=== PATIENT | female | born 1970 | race African-American/Black ===

== ENCOUNTER → 2019-01-30 | Outpatient (CLI) | payer MEDICARE, OTHER ==
--- NOTE | 2019-01-30 14:35 | CT ---
EXAMINATION TYPE: CT abdomen pelvis wo con DATE OF EXAM: 01/30/2019 HISTORY: abdominal pain CT DLP: 659 mGycm. Automated Exposure Control for Dose Reduction was Utilized. TECHNIQUE: CT scan of the abdomen and pelvis is performed with oral but without contrast. COMPARISON: NONE FINDINGS: Within the limitations of a non-contrast study, the following observations are made. Motio n artifact degradation is seen making evaluation slightly suboptimal. LUNG BASES: Heterogeneously dense fibroglandular tissue in both breasts was suspected nearly 1 cm dys trophic calcification medially in the left breast axial image 2. Some respiratory motion artifact deg radation. LIVER/GB: No significant abnormality is appreciated. PANCREAS: No significant abnormality is seen. SPLEEN: No significant abnormality is seen. ADRENALS: No significant abnormality is seen. KIDNEYS: There is 5.3 cm low dense lesion lower pole right kidney favoring simple thin-walled cyst ax ial image 35. BOWEL: The oral contrast reaches the level of the proximal transverse colon. Patient is very little i ntra-abdominal fat making evaluation slightly suboptimal. No suspicious small or large bowel dilatati on is seen. GENITAL ORGANS: Lobulated uterus suggests multiple subserosal or exophytic fibroids. Scattered pelvic phleboliths are noted. LYMPH NODES: No greater than 1cm abdominal or pelvic lymph nodes are appreciated. OSSEOUS STRUCTURES: Slight S-shaped scoliotic curvature. OTHER: No significant additional abnormality is seen. IMPRESSION: No bowel obstruction is present. No acute findings clearly seen. Probable uterine fibroid disease noted.
== END | disposition home or self-care (01) ==
LOC: RADCTMAIN 10:33 → EEVIPCON 12:40
PROVIDERS: ATTEND Family Medicine
DX: R10.9 Unspecified abdominal pain (principal)
CPT/HCPCS: 74176

== ENCOUNTER → 2020-04-01 | Outpatient (CLI) | payer MEDICARE, OTHER ==
--- NOTE | 2020-04-05 11:29 | MM ---
Reason for exam: screening (asymptomatic). Last mammogram was performed 9 years and 2 months ago. History: Took hormonal contraceptives for 1 year beginning at age 36. Physical Findings: A clinical breast exam by your physician is recommended on an annual basis and results should be correlated with mammographic findings. MG 3D Screening Mammo W/Cad Bilateral CC and MLO view(s) were taken. Prior study comparison: January 24, 2011, CAD bilateral diagnostic mammogram. January 18, 2010, bilateral digital screening mammogram. The breast tissue is extremely dense which could obscure a lesion on mammography. Old fat necrosis medial left breast. Bilateral circumscribed masses greater in the left breast. 1.3cm posterior 8-9 o'clock right breast. At least 4 on the left measuring up to 2.0cm. Further ultrasound evaluation recommended given extremely dense breast. ASSESSMENT: Incomplete: need additional imaging evaluation, BI-RAD 0 RECOMMENDATION: Ultrasound of both breasts. [facility] will attempt to contact patient to return for ultrasound.
== END | disposition home or self-care (01) ==
LOC: RADMAMWWP 13:15
PROVIDERS: ATTEND Family Medicine
DX: Z12.31 Encounter for screening mammogram for malignant neoplasm of breast (principal)
CPT/HCPCS: 77063; 77067

== ENCOUNTER → 2020-04-08 | Outpatient (CLI) | payer MEDICARE, OTHER ==
--- NOTE | 2020-04-09 13:26 | USB ---
Reason for exam: additional evaluation requested from abnormal screening. History: Took hormonal contraceptives for 1 year beginning at age 36. Physical Findings: Nurse Summary: bilateral movable palpables, all movable, 0.5-2cm tenderness noted on exam (nurse ts). US Breast Workup AMY Right complete breast ultrasound includes all four quadrants, the retroareolar region and axilla. Finding demonstrates a 0.9 x 0.9 x 0.7cm oval, cystic lesion at 12 o'clock, simple cyst, a 1.0 x 1.2 x 0.6cm oval, cluster, complex, cystic lesion at 2 o'clock, adjacent cysts with debris, ductal ectasia at 4 o'clock, a 0.5 x 0.4 x 0.4cm oval, lesion too small to characterize at 10 o'clock and a 0.6 x 0.6 x 0.5cm oval lesion too small to characterize at 1 o'clock, favor irregular debris filled cyst. Left complete breast ultrasound includes all four quadrants, the retroareolar region and axilla. Finding demonstrates a 0.9 x 0.9 x 0.8cm oval, complex, cystic lesion at 2 o'clock, favor debris filled cyst, a 2.7 x 2.0 x 0.9cm oval, irregular, mixed lesion at 2 o'clock, aspiration/biopsy recommended, a 1.0 x 1.1 x 0.9cm oval, hypoechoic, shadowing lesion at 3 o'clock, biopsy recommended, a 0.6 x 0.6 x 0.6cm round, complex, cystic lesion at 3 o'clock, through transmission, likely debris, a 2.3 x 1.1 x 0.5cm oval, lobular, hypoechoic, vascular lesion at 4 o'clock, biopsy recommended, a 1.3 x 2.0 x 1.0cm oval, mixed, hypoechoic lesion at 7 o'clock, biopsy recommended, a 0.7 x 0.7 x 0.4cm oval, lobular, hypoechoic lesion at 8 o'clock, a 0.8 x 0.9 x 0.8cm complex, cystic lesion at 11 o'clock, questionable debris filled cyst and a 1.7 x 1.1 x 0.3cm axilla node. These results were verbally communicated with the patient and result sheet given to the patient on 04/08/20. ASSESSMENT: Suspicious, BI-RAD 4 RECOMMENDATION: Ultrasound core biopsy of the left breast. (4 lesions) Called Dr. Hernandez's office with mammographic findings and has scheduled an appointment for the patient for 05/21/19 at 9:[address] Cantu. Biopsies scheduled for 04/26/20 at 1:00 and 05/03/20 at 1:00. PRELIMINARY REPORT CALLED AND FAXED TO DR. CANTU ON 04/09/20.
== END | disposition home or self-care (01) ==
LOC: RADUSWWP 13:32
PROVIDERS: ATTEND Family Medicine
DX: R92.8 Other abnormal and inconclusive findings on diagnostic imaging of breast (principal)

== ENCOUNTER → 2020-04-26 | Day surgery (SDC) | payer MEDICARE, OTHER ==
[2020-04-26 13:14] VITALS: RESP 16
[2020-04-26 14:23] VITALS: BP 129/88; PULSE 109; TEMP 99.5
--- NOTE | 2020-04-26 14:24 | USB ---
EXAMINATION TYPE: US biopsy breast VAD LT, US biopsy breast add'l VAD LT, MG postbiopsy diagnostic mammo LT wo CAD DATE OF EXAM: 04/26/2020 CLINICAL HISTORY: 49-year-old female R92.8 ABN MAMMO. TECHNIQUE: Ultrasound guided core biopsy of 2 out of 4 sites in the left breast. COMPARISON: 04/08/2020 04/01/2020 FINDINGS: The procedure of ultrasound guided core biopsy was explained to the patient. Benefits, alternatives, and risks were discussed. An informed consent was then obtained. There are 2 caretakers which accompany the patient. The patient 04/08/2020 ultrasound is reviewed. Lesions which are referred for biopsy are located at the 2:00, 3:00 zone A, 4:00, and 7:00 positions. The largest areas (2:00 and 7:00) are chosen for biopsy at this time. The patient will return next week for the remaining 2 sites. The patient was placed in right posterior oblique positioning for imaging and for the procedure. The overlying skin was prepped and draped in usual sterile fashion. Lidocaine was used as anesthetic into the skin and subcutaneous tissue up to area of concern in the 2:00 and 7:00 position at each site sports apparel internship. SITE 1, 2:00: Under ultrasound guidance, a 13-gauge vacuum-assisted Mammotome Elite biopsy gun device was used to obtain 4 core samples. Following this, a coil clip was deployed at the site of biopsy. SITE 2, 7:00: Under ultrasound guidance, a 13-gauge vacuum-assisted Mammotome Elite biopsy gun device was used to obtain 3 core samples. Following this, a ribbon clip was left in lesion. The patient tolerated the procedure well without any immediate complication. The patient was kept in the radiology department for short stay after the procedure and then discharged home in stable condition. Post procedure mammogram shows clips at 2 of the mammographic masses. The 2:00 coil clip is seen on the repeat ML view only. IMPRESSION: 1. Successful, uncomplicated ultrasound guided core biopsy of area of concern in the left 2 and 7:00 positions (coil and ribbon clips, respectively). Full pathology results to follow. 2. Patient to return next week for biopsies at the left breast 3:00 zone A and 4:00 positions. Pathology Results: Benign A. LEFT BREAST, 2:00, ULTRASOUND GUIDED CORE BIOPSY: Fibrocystic changes including fibrosis, small cysts and rare calcifications. B. LEFT BREAST, 7:00, ULTRASOUND GUIDED CORE BIOPSY: Fibrocystic changes including fibrosis and small cysts. Recommendation Follow up mammogram of the left breast in 6 months. FERNANDO
== END ==
LOC: RADUSWWP 12:00
PROVIDERS: ATTEND Surgery
DX: N60.12 Diffuse cystic mastopathy of left breast (principal)
CPT/HCPCS: 88305; 77065; 19083; 19084; A4648; J2001

== ENCOUNTER → 2020-05-03 | Day surgery (SDC) | payer MEDICARE, OTHER ==
--- NOTE | 2020-05-03 15:33 | USB ---
EXAMINATION TYPE: US biopsy breast VAD LT, US biopsy breast add'l VAD LT, MG postbiopsy diagnostic mammo LT wo CAD DATE OF EXAM: 05/03/2020 CLINICAL HISTORY: 49-year-old female R92.8 Abnormal Mammogram 2 Site. TECHNIQUE: Ultrasound guided core biopsy of the 3 and 4:00 position of the left breast. Completion of biopsies from 04/26/2020. COMPARISON: 04/08/2020 and 04/01/2020 FINDINGS: The procedure of ultrasound guided core biopsy was explained to the patient. Benefits, alternatives, and risks were discussed. An informed consent was then obtained. The patient was placed in supine positioning for imaging and for the procedure. The overlying skin was prepped and draped in usual sterile fashion. Lidocaine was used as anesthetic into the skin and subcutaneous tissue up to each area of concern in the left breast in turn. (The first 2 sites were sampled on 04/26/2020). SITE 3, 3:00 zone A (possibly cystic): Under ultrasound guidance, a 13-gauge vacuum-assisted Mammotome Elite biopsy gun device was used to obtain a total of 9 samples; the biopsy device failed to obtain adequate cores at the first 5 attempts. The device was switched out and 4 successful cores were subsequently obtained. Following this, a wing clip was deployed at the site of biopsy. SITE 4, 4:00 (hypoechoic lobulated): Under ultrasound guidance, a 13-gauge vacuum-assisted Mammotome Elite biopsy gun device was used to obtain 4 core samples. Following this, a Hydromark clip was left in lesion. The patient tolerated the procedure well without any immediate complication. The patient was kept in the radiology department for short stay after the procedure and then discharged home in stable condition. Postbiopsy mammogram shows clips in appropriate position. IMPRESSION: Successful, uncomplicated ultrasound guided core biopsy of sites 3 and 4 in the left breast (continuation from biopsy started on 04/26/2020). Full pathology results to follow. Pathology Results: Benign A. BREAST, LEFT, SITE A AT 3:00, CORE NEEDLE BIOPSY: Benign breast with focal fibrocystic change, fibrosis, mild periductal chronic inflammation and focal microcalcification. Negative for in situ or invasive carcinoma. Focal mild usual ductal hyperplasia present. B. BREAST, LEFT, SITE B AT 4:00: Fibroadenomatoid change/hyperplasia with mild periductal chronic inflammation, fibrosis, and focal sclerosing adenosis (See comment). Negative for in situ or invasive carcinoma. Rare microcalcification identified. Recommendation Follow up ultrasound of the left breast in 6 months. AYSED
[2020-05-03 16:16] VITALS: BP 128/77; PULSE 108; RESP 17; TEMP 98
== END ==
LOC: RADUSWWP 12:02
PROVIDERS: ATTEND Surgery
DX: N60.12 Diffuse cystic mastopathy of left breast (principal); R92.0 Mammographic microcalcification found on diagnostic imaging of breast; R92.8 Other abnormal and inconclusive findings on diagnostic imaging of breast; N62 Hypertrophy of breast
CPT/HCPCS: 88305; 88342; 77065; 19083; 19084; A4648; J2001

== ENCOUNTER → 2020-05-21 | Outpatient (CLI) | payer MEDICARE, OTHER ==
[2020-05-21 09:09] VITALS: BP 112/74; PULSE 111; RESP 16; TEMP 98.3
--- NOTE | 2020-05-21 09:54 | P.GSHP ---
History of Present Illness H&P Date: 05/21/20 Chief Complaint: Core Biopsy of 4 areas in the left breast Lianne is a 49-year-old mentally challenged -[place] female who underwent a bilateral screening mammogram on 122557 and ultrasound on [id number]. She was seen in consultation for Dr. Vaughn regarding the abnormalities noted on the ultrasound. 4 areas were recommended for biopsy on the [place] [address] [place] [address]. The area in the left breast at 2:00 revealed fibrocystic changes Area left breast at 7:00 fibrocystic changes Left breast at 3:00 fibrocystic changes Area left breast at 4:00 fibroadenomatoid change with mild. Ductal chronic inflammation and focal sclerosing adenosis All areas were felt to be concordant and negative for malignancy. Approximately 8-9 years ago she did have a biopsy done in one of the breast which was benign. The patient is not complaining of any lumps masses or nodules in her breast, she is mentally challenged and does not do self- examinations. She has had some intermittent left breast discomfort for the past several months. No nipple discharge. caffeine: tea in evening nicotine: none michael-bromine: occasional Family History: unknown Hormonal History: menarche: ? start G0 menopause: periods regular BCP: none hormones: none Past Surgical History: none Medical History: diverticulitis mentally challenged pre-diabetic Schizoaffective disorder and mild intellectual disability Social History: nicotine: none alcohol: none drugs: none - Constitutional Constitutional: Denies chills, Denies fever - EENT Eyes: denies blurred vision, denies pain Ears: deny: decreased hearing, tinnitus Ears, nose, mouth and throat: Denies headache, Denies sore throat - Breasts Breasts: bilateral: as per HPI - Cardiovascular Cardiovascular: Denies chest pain, Denies shortness of breath - Respiratory Respiratory: Denies cough, Denies 7 - Gastrointestinal Gastrointestinal: Denies abdominal pain, Denies diarrhea, Denies nausea, Denies vomiting - Genitourinary (Female) Comment: UTI in past Genitourinary: Denies dysuria, Denies hematuria - Menstruation Menstruation: Reports period normal - Musculoskeletal Musculoskeletal: Denies myalgias - Integumentary Integumentary: Denies pruritus, Denies rash - Neurological Neurological: Denies numbness, Denies weakness - Psychiatric Comment: Schizoaffective disorder Mild intellectual disability - Endocrine Endocrine: Denies fatigue, Denies weight change - Hematologic/Lymphatic Comment: none - Allergic/Immunologic Allergic/Immunologic: Reports as per HPI Past Medical History Additional Past Medical History / Comment(s): DIVERTICULITIS; MODERATE INTELLECTUAL ABILITY; PRE-DIABETIC; History of Any Multi-Drug Resistant Organisms: None Reported Past Surgical History: Breast Surgery Additional Past Surgical History / Comment(s): benign LEFT BREAST BIOPSY x2 on 04/26/20 & x2 on 05/03/20; Past Anesthesia/Blood Transfusion Reactions: No Reported Reaction Past Psychological History: Schizoaffective Disorder Smoking Status: Never smoker Past Alcohol Use History: None Reported Past Drug Use History: None Reported Medications and Allergies Home Medications Medication Instructions Recorded Confirmed Type Ciclopirox Olamine Cream [Ciclodan] 1 applic TOPICAL DAILY 04/12/20 05/21/20 History Divalproex ER [Depakote ER] 500 mg PO HS 04/12/20 05/21/20 History Ferrous Gluconate 324 mg PO BID 04/12/20 05/21/20 History Glycopyrrolate 1 mg PO BID 04/12/20 05/21/20 History LORazepam [Ativan] 0.5 mg PO BID PRN 04/12/20 05/21/20 History LORazepam [Ativan] 1 mg PO HS 04/12/20 05/21/20 History Omeprazole [PriLOSEC] 20 mg PO BID 04/12/20 05/21/20 History cloNIDine HCL [Catapres] 0.2 mg PO BID 04/12/20 05/21/20 History cloZAPine [Clozaril] 100 mg PO HS 04/12/20 05/21/20 History haloperidoL [Haldol] 5 mg PO HS 04/12/20 05/21/20 History Allergies Allergy/AdvReac Type Severity Reaction Status Date / Time No Known Allergies Allergy Verified 05/03/20 12:26 Surgical - Exam Vital Signs Temp Pulse Resp BP Pulse Ox 98.3 F 111 H 16 112/74 99 05/21/20 09:00 05/21/20 09:00 05/21/20 09:00 05/21/20 09:00 05/21/20 09:00 BMI 22.9 - General mentally challenged - Eyes normal ocular movement - ENT normal nares - Neck no masses, trachea midline - Respiratory normal expansion - Cardiovascular Rhythm: regular Heart Sounds: normal: S1, S2 - Abdomen Abdomen: soft - Integumentary normal turgor - Neurologic mentally challenged - Musculoskeletal normal gait - Psychiatric She is seen with her caregiver and clinician from [facility]/patient has mild intellectual actual disability breast exam: BRA: sports bra 2X inspection: Bilateral grade 3 ptosis Palpation: Right breast: Multi-positional exam fibrocystic changes, no dominant masses or nodules of concern Right axilla: No adenopathy of concern Left breast: Multiple positional exam fibrocystic changes, Steri-Strips in place from prior biopsy no evidence of infection no ecchymosis of concern Left axilla: No adenopathy of concern Results Mammogram and ultrasound results reviewed as well as pathology report reviewed Assessment and Plan Assessment: Impression: 1. Abnormal left breast mammogram and ultrasound status post ultrasound-guided core biopsy of 4 sites all benign 2. Fibrocystic breast changes 3. Mild intellectual disability/schizoaffective disorder 4. Prediabetic 5. Nothing at this time which would warrant interventional biopsy of the breast Plan: 1. Repeat left breast mammogram and ultrasound in 6 months 2. Follow up sooner if any questions of concern 3. Management of medical conditions as per Dr. Hernandez CC: Dr. Hernandez encounter 45 minutes, time spent in reviewing medical records, physical examination, and counseling. The case was discussed with her caregiver and [facility]. Again if she has any questions or concerns we have be to see her sooner.
== END | disposition home or self-care (01) ==
LOC: WWCWWP 08:39
PROVIDERS: ATTEND Surgery
DX: Z53.9 Procedure and treatment not carried out, unspecified reason (principal)

== ENCOUNTER → 2020-11-02 | Outpatient (CLI) | payer MEDICARE, OTHER ==
--- NOTE | 2020-11-02 10:27 | USB ---
EXAMINATION TYPE: US breast limited LT DATE OF EXAM: 11/02/2020 COMPARISON: Mammogram same date, 05/03/2020, 04/26/2020, 04/08/2020, 04/01/2020 CLINICAL HISTORY: R92.8 Abnormal Mammogram. Findings: In the left breast at 2:00, there is a 1.6 x 0.9 x 1.5 cm heterogeneous lesion which has been previou sly biopsied. In the left breast at 4:00, there is a 0.8 x 0.4 x 1.3 cm heterogeneous lesion which is previously bi opsied. In the left breast at 7:00, there is a 1.3 x 0.9 x 1.8 cm lobulated hypoechoic lesion which contains biopsy clip. Other hypoechoic and anechoic ovoid lesions are also seen which are presumed benign due to multiplici ty and bilaterality. IMPRESSION: No sonographic evidence for malignancy. BI-RADS 2, benign. Patient is due for her bilateral mammogram in March 2021 which can be performed as a screening brenton mogram.
--- NOTE | 2020-11-02 11:42 | MM ---
Reason for exam: follow-up at short interval from prior study. Last mammogram was performed 6 months ago. History: Benign US biopsy breast VAD LT of the left breast, May 03, 2020. Benign US biopsy breast add'l VAD LT of the left breast, May 03, 2020. Benign US biopsy breast VAD LT of the left breast, April 26, 2020. Benign US biopsy breast add'l VAD LT of the left breast, April 26, 2020. Took hormonal contraceptives for 1 year beginning at age 36. Physical Findings: Nurse did not find any significant physical abnormalities on exam. MG Diagnostic Mammo LT w CAD CC and MLO view(s) were taken of the left breast. Prior study comparison: May 03, 2020, left breast MG diagnostic mammo LT wo CAD. April 26, 2020, left breast MG diagnostic mammo LT wo CAD. April 01, 2020, bilateral MG 3d screening mammo w/cad. January 24, 2011, CAD bilateral diagnostic mammogram. The breast tissue is heterogeneously dense. This may lower the sensitivity of mammography. Asymmetry unchanged now some with biopsy clips. These results were verbally communicated with the patient and result sheet given to the patient on 11/02/20. ASSESSMENT: Incomplete: need additional imaging evaluation, BI-RAD 0 RECOMMENDATION: Ultrasound of the left breast. (as per prior recommendation)
== END | disposition home or self-care (01) ==
LOC: RADMAMWWP 09:24
PROVIDERS: ATTEND Surgery
DX: N64.89 Other specified disorders of breast (principal); Z79.3 Long term (current) use of hormonal contraceptives
CPT/HCPCS: 77065

== ENCOUNTER → 2020-11-11 | Outpatient (CLI) | payer MEDICARE, OTHER ==
[2020-11-11 14:11] VITALS: BP 136/90; PULSE 106; RESP 18; TEMP 97.8
--- NOTE | 2020-11-11 14:25 | P.PN ---
Subjective Progress Note Date: 11/11/20 Principal diagnosis: fibrocystic breast changes Lianne is a 49-year-old mentally challenged -[place] female who underwent a bilateral screening mammogram on 457539 and ultrasound on 981070. She was seen in consultation for Dr. Vaughn regarding the abnormalities noted on the ultrasound. 4 areas were recommended for biopsy on the ultrasound [place] [address] [place] [address]. The area in the left breast at 2:00 revealed fibrocystic changes Area left breast at 7:00 fibrocystic changes Left breast at 3:00 fibrocystic changes Area left breast at 4:00 fibroadenomatoid change with mild. Ductal chronic inflammation and focal sclerosing adenosis All areas were felt to be concordant and negative for malignancy. Approximately 8-9 years ago she did have a biopsy done in one of the breast which was benign. She underwent a repeat mammogram and ultrasound of the left breast on 11-02-20. The findings were felt to be benign BIRADS 2, and repeat mammogram in March was recommended. The patient is not complaining of any lumps masses or nodules in her breast, she is mentally challenged and does not do self-examinations. No nipple discharge. caffeine: tea in evening nicotine: none michael-bromine: occasional Family History: unknown Hormonal History: menarche: ? start G0 menopause: periods regular BCP: none hormones: none Past Surgical History: none Medical History: diverticulitis mentally challenged pre-diabetic Schizoaffective disorder and mild intellectual disability Social History: nicotine: none alcohol: none drugs: none - Constitutional Constitutional: Denies chills, Denies fever - EENT Eyes: denies blurred vision, denies pain Ears: deny: decreased hearing, tinnitus Ears, nose, mouth and throat: Denies headache, Denies sore throat - Breasts Breasts: bilateral: as per HPI - Cardiovascular Cardiovascular: Denies chest pain, Denies shortness of breath - Respiratory Respiratory: Denies cough - Gastrointestinal Gastrointestinal: Denies abdominal pain, Denies diarrhea, Denies nausea, Denies vomiting - Genitourinary (Female) Comment: UTI in past Genitourinary: Denies dysuria, Denies hematuria - Menstruation Menstruation: Reports period normal - Musculoskeletal Musculoskeletal: Denies myalgias - Integumentary Integumentary: Denies pruritus, Denies rash - Neurological Neurological: Denies numbness, Denies weakness - Psychiatric Comment: Schizoaffective disorder Mild intellectual disability - Endocrine Endocrine: Denies fatigue, Denies weight change - Hematologic/Lymphatic Comment: none - Allergic/Immunologic Allergic/Immunologic: Reports as per HPI Objective - Vital Signs Vital signs: Vital Signs Temp 97.8 F 11/11/20 14:08 Pulse 106 H 11/11/20 14:08 Resp 18 11/11/20 14:08 BP 136/90 11/11/20 14:08 Pulse Ox 100 11/11/20 14:08 Intake & Output 11/10/20 11/11/20 11/11/20 18:59 06:59 18:59 Weight 68.039 kg - Exam BMI 24.4 - Constitutional General appearance: Present: average body habitus - EENT Eyes: Present: EOMI - Neck Neck: Present: normal ROM - Respiratory Respiratory: bilateral: CTA - Cardiovascular Heart sounds: normal: S1, S2 - Psychiatric Psychiatric Comment(s): mentally challenged - Additional findings Additional findings: Breast Exam: BRA: large sports bra Inspection: grade 2/3 ptosis bilateral Outpatient: Right breast: Multi-positional exam no dominant masses or nodules of concern Right axilla: No adenopathy of concern Left breast: Multiple positional exam fibrocystic changes no dominant masses or nodules of concern, well-healed scar from prior surgery Left axilla: No adenopathy of concern Assessment and Plan Assessment: Impression: 1. Patient status post repeat mammogram [place] [address] felt to be benign BIRADS 2 2. Patient underwent core biopsy of left breast at 3:00 and 4:00 as well as at 2:00 and 7:00 and all were benign[place] [address] and [address]. 3. Fibrocystic breast changes 4. Prediabetic 5. Mild intellectual disability/schizoaffective disorder Plan: 1. Repeat bilateral mammogram and ultrasound of the left breast in March 2. Physician exam at that time CC: Dr. Hernandez The patient was seen in conjunction with her caregiver from [facility].
== END ==
LOC: WWCWWP 13:57
PROVIDERS: ATTEND Surgery
DX: N60.12 Diffuse cystic mastopathy of left breast (principal); R73.03 Prediabetes; F25.9 Schizoaffective disorder, unspecified; F70 Mild intellectual disabilities

== ENCOUNTER → 2021-04-12 | Outpatient (CLI) | payer MEDICARE, OTHER ==
--- NOTE | 2021-04-12 10:37 | MM ---
Reason for exam: additional evaluation requested from prior study. Last mammogram was performed 5 months ago. History: Benign US biopsy breast VAD LT of the left breast, May 03, 2020. Benign US biopsy breast add'l VAD LT of the left breast, May 03, 2020. Benign US biopsy breast VAD LT of the left breast, April 26, 2020. Benign US biopsy breast add'l VAD LT of the left breast, April 26, 2020. Took hormonal contraceptives for 1 year beginning at age 36. Physical Findings: Nurse did not find any significant physical abnormalities on exam. MG 3D Diag Mammo W/Cad AMY Bilateral CC and MLO view(s) were taken. XCCL view(s) were taken of the left breast. Prior study comparison: November 02, 2020, left breast MG diagnostic mammo LT w CAD. May 03, 2020, left breast MG diagnostic mammo LT wo CAD. No significant new findings when compared with previous films. These results were verbally communicated with the patient and result sheet given to the patient on 04/12/21. ASSESSMENT: Benign, BI-RAD 2 RECOMMENDATION: Routine screening mammogram of both breasts in 1 year.
--- NOTE | 2021-04-12 10:42 | USB ---
Reason for exam: additional evaluation requested from prior study. History: Benign US biopsy breast VAD LT of the left breast, May 03, 2020. Benign US biopsy breast add'l VAD LT of the left breast, May 03, 2020. Benign US biopsy breast VAD LT of the left breast, April 26, 2020. Benign US biopsy breast add'l VAD LT of the left breast, April 26, 2020. Took hormonal contraceptives for 1 year beginning at age 36. US Breast Limited LT Left limited breast ultrasound including focal area of concern, retroareolar and axilla demonstrates a 7 x 8 x 7mm oval, hypoechoic lesion at 2 o'clock, a 14 x 8 x 13mm oval, solid lesion at 2 o'clock, a 6 x 5 x 5mm oval, mixed lesion at 3 o'clock, a 7 x 3 x 12mm oval, solid lesion at 4 o'clock and a 15 x 7 x 16mm oval, solid lesion at 7 o'clock. All stable or smaller in size. These results were verbally communicated with the patient and result sheet given to the patient on 04/12/21. ASSESSMENT: Benign, BI-RAD 2 RECOMMENDATION: Routine screening mammogram of both breasts in 1 year.
== END | disposition home or self-care (01) ==
LOC: RADMAMWWP 08:20
PROVIDERS: ATTEND Surgery
DX: N64.59 Other signs and symptoms in breast (principal)
CPT/HCPCS: 77066; 76642; G0279; 77062

== ENCOUNTER → 2021-04-28 | Outpatient (CLI) | payer MEDICARE, OTHER ==
[2021-04-28 09:26] VITALS: BP 114/74; PULSE 99; RESP 16; TEMP 97.7
--- NOTE | 2021-04-28 09:48 | P.PN ---
Subjective Progress Note Date: 04/28/21 Principal diagnosis: Fibrocystic breast changes bilateral fibrocystic breast changes Lianne is a 50-year-old mentally challenged -Burkin[place] female who underwent a bilateral screening mammogram on 087030 and ultrasound on 326076. She was seen in consultation for Dr. Vaughn regarding the abnormalities noted on the ultrasound. 4 areas were recommended for biopsy on the ultrasound and these biopsies were performed on 1421 [place] [address]126. The area in the left breast at 2:00 revealed fibrocystic changes Area left breast at 7:00 fibrocystic changes Left breast at 3:00 fibrocystic changes Area left breast at 4:00 fibroadenomatoid change with mild. Ductal chronic inflammation and focal sclerosing adenosis All areas were felt to be concordant and negative for malignancy. Approximately 8-9 years ago she did have a biopsy done in one of the breast which was benign. She underwent a repeat mammogram and ultrasound of the left breast on 11-02-20. The findings were felt to be benign BIRADS 2, and repeat mammogram in March was recommended. The patient is not complaining of any lumps masses or nodules in her breast, she is mentally challenged and does not do self-examinations. No nipple discharge. She underwent a bilateral mammogram on 1220 121 which was benign BIRADS 2 and she underwent a left breast ultrasound on the same date which was also benign BIRADS 2. Lesions seen on the ultrasound included a 7 x 8 mm hypoechoic lesion at 2:00, a 14 x 13. The lesion at 2:00:, A 6 x 5 mm mixed lesion at 3:00, and a 7 x 12 mm solid lesion at 4:00, and a 15 x 7 solid lesion at 7:00. All were stable or smaller in size. She had previously undergone ultrasound-guided core biopsy of 4 areas in the left breast all of which were benign. This was felt to be benign BIRADS 2 and repeat screening mammogram of both breast in 1 year was recommended. caffeine: tea in evening nicotine: none michael-bromine: occasional Family History: unknown Hormonal History: menarche: ? start G0 menopause: periods regular BCP: none hormones: none Past Surgical History: none Medical History: diverticulitis mentally challenged pre-diabetic Schizoaffective disorder and mild intellectual disability Social History: nicotine: none alcohol: none drugs: none - Constitutional Constitutional: Denies chills, Denies fever - EENT Eyes: denies blurred vision, denies pain Ears: deny: decreased hearing, tinnitus Ears, nose, mouth and throat: Denies headache, Denies sore throat - Breasts Breasts: bilateral: as per HPI - Cardiovascular Cardiovascular: Denies chest pain, Denies shortness of breath - Respiratory Respiratory: Denies cough - Gastrointestinal Gastrointestinal: Denies abdominal pain, Denies diarrhea, Denies nausea, Denies vomiting - Genitourinary (Female) Comment: UTI in past Genitourinary: Denies dysuria, Denies hematuria - Menstruation Menstruation: Reports period normal - Musculoskeletal Musculoskeletal: Denies myalgias - Integumentary Integumentary: Denies pruritus, Denies rash - Neurological Neurological: Denies numbness, Denies weakness - Psychiatric Comment: Schizoaffective disorder Mild intellectual disability - Endocrine Endocrine: Denies fatigue, Denies weight change - Hematologic/Lymphatic Comment: none - Allergic/Immunologic Allergic/Immunologic: Reports as per HPI Objective - Vital Signs Vital signs: Vital Signs Temp 97.7 F 04/28/21 09:20 Pulse 99 04/28/21 09:20 Resp 16 04/28/21 09:20 BP 114/74 04/28/21 09:20 Pulse Ox Intake & Output 04/27/21 04/28/21 04/28/21 18:59 06:59 18:59 Weight 68.039 kg - Exam BMI 26.6 - Constitutional General appearance: Present: cooperative - EENT Eyes: Present: EOMI ENT: Present: hearing grossly normal - Neck Neck: Present: normal ROM - Respiratory Respiratory: bilateral: CTA - Cardiovascular Heart sounds: normal: S1, S2 - Gastrointestinal General gastrointestinal: Present: soft - Integumentary Integumentary: Present: normal turgor - Musculoskeletal Musculoskeletal: Present: gait normal - Psychiatric Psychiatric: Present: A&O x's 3, appropriate affect, intact judgment & insight - Additional findings Additional findings: breast Exam: BRA: sports bra large inspection: bilateral grade 3 ptosis palpation: Right breast: Dense no dominant masses or nodules of concern on multiple positional exam, fibrocystic changes Right axilla: No adenopathy of concern Left breast: Multi-positional exam fibrocystic changes no dominant masses or nodules of concern Left axilla: No adenopathy of concern Assessment and Plan Assessment: Impression: I have personally reviewed the ultrasound of the left breast with DR. Chapman and we are recommending a 6 month repeat left breast ultrasound with specific attention to the 2 o'clock position for the lesion in the B/C zone. 50-year-old -[place] female mentally challenged with fibrocystic breast changes No new changes noted in her breast Ultrasound reviewed with multiple lesions which appear to be stable prior biopsy in the past Recent bilateral mammogram benign BIRADS 2 Plan: Repeat bilateral mammogram in 1 year with physician exam at that time, repeat left breast ultrasound 6 months Six-month examination secondary to dense breast CC: Dr. Vaughn
== END ==
LOC: WWCWWP 09:03
PROVIDERS: ATTEND Surgery
DX: N64.9 Disorder of breast, unspecified (principal); F20.9 Schizophrenia, unspecified; Z79.899 Other long term (current) drug therapy

== ENCOUNTER → 2021-10-10 | Outpatient (CLI) | payer MEDICARE, OTHER ==
--- NOTE | 2021-10-10 17:43 | USB ---
Reason for Exam: Follow-up at short interval from prior study. Patient History: Hormonal Contraceptives for 1 year from age 36 until age 37. 05/03/2020, Benign Core Biopsy on the left side. 05/03/2020, Benign Core Biopsy on the left side. 04/26/2020, Benign Core Biopsy on the left side. 04/26/2020, Benign Core Biopsy on the left side. Risk Values: Deb 5 year model risk: 1.0%. NCI Lifetime model risk: 8.5%. Prior Study Comparison: 05/03/2020 Left Diagnostic Mammogram, [facility]. 11/02/2020 Left Diagnostic Mammogram, [facility]. 04/12/2021 Bilateral Diagnostic Mammogram, [facility]. Findings: The upper outer quadrant of the left breast, the lower outer quadrant of the left breast, the axilla of the left breast and the retroareolar of the left breast were scanned. At the 2:00 a zone there is a 0.8 x 0.5 x 0.5 cm hypoechoic ill-defined area that is taller than wide with posterior shadowing. This appears to be new from the comparison study. Biopsy of this area is recommended. This area should be considered suspicious. There are multiple additional circumscribed round areas which were present previously and have a similar appearance.. Overall Assessment: Suspicious, BI-RAD 4 Management: Ultrasound Core Biopsy of the left breast. A clinical breast exam by your physician is recommended on an annual basis and results should be correlated with mammographic findings. Electronically signed and approved by: Bhanu Da Silva D.O. Radiologis
== END | disposition home or self-care (01) ==
LOC: RADUSWWP 14:06
PROVIDERS: ATTEND Surgery
DX: R92.8 Other abnormal and inconclusive findings on diagnostic imaging of breast (principal)

== ENCOUNTER → 2021-10-13 | Outpatient (CLI) | payer MEDICARE, OTHER ==
[2021-10-13 11:28] VITALS: BP 120/78; PULSE 121; RESP 17; TEMP 98.5
--- NOTE | 2021-10-13 11:58 | P.PN ---
Subjective Progress Note Date: 10/13/21 Principal diagnosis: radiographic abnormality left breast Fibrocystic breast changes bilateral fibrocystic breast changes Lianne is a 50-year-old mentally challenged -[place] female who underwent a bilateral screening mammogram on [id number] and ultrasound on [id number]. She was seen in consultation for Dr. Vaughn regarding the abnormalities noted on the ultrasound. 4 areas were recommended for biopsy on the ultrasound and these biopsies were performed on 1421 and 07774. The area in the left breast at 2:00 revealed fibrocystic changes Area left breast at 7:00 fibrocystic changes Left breast at 3:00 fibrocystic changes Area left breast at 4:00 fibroadenomatoid change with mild. Ductal chronic inflammation and focal sclerosing adenosis All areas were felt to be concordant and negative for malignancy. Approximately 8-9 years ago she did have a biopsy done in one of the breast which was benign. She underwent a repeat mammogram and ultrasound of the left breast on 11-02-20. The findings were felt to be benign BIRADS 2, and repeat mammogram in March was recommended. The patient is not complaining of any lumps masses or nodules in her breast, she is mentally challenged and does not do self-examinations. No nipple discharge. She underwent a bilateral mammogram on which was benign BIRADS 2 and she underwent a left breast ultrasound on the same date which was also benign BIRADS 2. Lesions seen on the ultrasound included a 7 x 8 mm hypoechoic lesion at 2:00, a 14 x 13. The lesion at 2:00:, A 6 x 5 mm mixed lesion at 3:00, and a 7 x 12 mm solid lesion at 4:00, and a 15 x 7 solid lesion at 7:00. All were stable or smaller in size. She had previously undergone ultrasound-guided core biopsy of 4 areas in the left breast all of which were benign. This was felt to be benign BIRADS 2 and repeat screening mammogram of both breast in 1 year was recommended. The patient had a left breast ultrasound on 10-10-21; at the 2:00 region there was a 0.8 cm lesion taller than wide and biopsy was recommended. caffeine: tea in evening nicotine: none michael-bromine: occasional Family History: unknown Hormonal History: menarche: ? start G0 menopause: periods regular BCP: none hormones: none Past Surgical History: none Medical History: diverticulitis mentally challenged pre-diabetic Schizoaffective disorder and mild intellectual disability Social History: nicotine: none alcohol: none drugs: none - Constitutional Constitutional: Denies chills, Denies fever - EENT Eyes: denies blurred vision, denies pain Ears: deny: decreased hearing, tinnitus Ears, nose, mouth and throat: Denies headache, Denies sore throat - Breasts Breasts: bilateral: as per HPI - Cardiovascular Cardiovascular: Denies chest pain, Denies shortness of breath - Respiratory Respiratory: Denies cough - Gastrointestinal Gastrointestinal: Denies abdominal pain, Denies diarrhea, Denies nausea, Denies vomiting - Genitourinary (Female) Comment: UTI in past Genitourinary: Denies dysuria, Denies hematuria - Menstruation Menstruation: Reports period normal - Musculoskeletal Musculoskeletal: Denies myalgias - Integumentary Integumentary: Denies pruritus, Denies rash - Neurological Neurological: Denies numbness, Denies weakness - Psychiatric Comment: Schizoaffective disorder Mild intellectual disability - Endocrine Endocrine: Denies fatigue, Denies weight change - Hematologic/Lymphatic Comment: none - Allergic/Immunologic Allergic/Immunologic: Reports as per HPI Objective - Vital Signs Vital signs: Vital Signs Temp 98.5 F 10/13/21 11:24 Pulse 121 H 10/13/21 11:24 Resp 17 10/13/21 11:24 BP 120/78 10/13/21 11:24 Pulse Ox 99 10/13/21 11:24 FiO2 - Constitutional General appearance: Present: cooperative - EENT ENT: Present: hearing grossly normal - Neck Neck: Present: normal ROM - Respiratory Respiratory: bilateral: CTA - Cardiovascular Rhythm: regular Heart sounds: normal: S1, S2 - Gastrointestinal General gastrointestinal: Present: soft - Integumentary Integumentary: Present: normal turgor - Musculoskeletal Musculoskeletal: Present: gait normal - Psychiatric Psychiatric: Present: A&O x's 3, appropriate affect, intact judgment & insight - Additional findings Additional findings: Breast Examination: BRA: sports medium inspection: bilateral grade 2/3 ptosis, right breast larger than left breast Palpation: Right breast: Multiple positional exam fibrocystic changes no dominant masses or nodules of concern Right axilla: No adenopathy of concern Left breast: No dominant masses or nodules of concern Left axilla: No adenopathy of concern Assessment and Plan Assessment: Impression: diverticulitis mentally challenged pre-diabetic Schizoaffective disorder and mild intellectual disability Other cystic breast changes Ultrasound of the left breast revealing a lesion of concern for which biopsy is recommended Plan: Core biopsy of left breast Follow up after core biopsy CC: Dr. Vaughn
== END ==
LOC: WWCWWP 11:06
PROVIDERS: ATTEND Surgery
DX: N60.19 Diffuse cystic mastopathy of unspecified breast (principal); K57.92 Diverticulitis of intestine, part unspecified, without perforation or abscess without bleeding; F25.9 Schizoaffective disorder, unspecified; F70 Mild intellectual disabilities; R73.03 Prediabetes

== ENCOUNTER → 2021-10-25 | Day surgery (SDC) | payer MEDICARE, OTHER ==
--- NOTE | 2021-10-28 11:41 | MM ---
Reason for Exam: Post Procedure Mammogram. Last screening mammogram was performed 7 month(s) ago. Patient History: Hormonal Contraceptives for 1 year from age 36 until age 37. 05/03/2020, Benign Core Biopsy on the left side. 05/03/2020, Benign Core Biopsy on the left side. 04/26/2020, Benign Core Biopsy on the left side. 04/26/2020, Benign Core Biopsy on the left side. Risk Values: Deb 5 year model risk: 1.0%. NCI Lifetime model risk: 8.5%. Prior Study Comparison: 05/03/2020 Left Diagnostic Mammogram, [facility]. 11/02/2020 Left Diagnostic Mammogram, [facility]. 04/12/2021 Bilateral Diagnostic Mammogram, [facility]. Tissue Density: Left: The breast tissue is heterogeneously dense. This may lower the sensitivity of mammography. Pathology Description: Location: 2 o'clock. Marker Left Behind. Cores: 4 Gauge: 13 Pathology Results: Result: Benign, Fat necrosis. LEFT BREAST, TWO O'CLOCK, ULTRASOUND GUIDED NEEDLE CORE BIOPSY: Scar/fibrosis with hemosiderin laden histiocytes, fat necrosis and chronic inflammation. Negative for malignancy. Overall Assessment: Benign Assessment: MG diagnostic mammo LT wo CAD. - Left: Benign, BI-RAD 2. Management: Diagnostic Breast Ultrasound of the left breast in 6 months. Electronically signed and approved by: Brandon Nieto M.D. Radiologist
== END ==
LOC: RADUSWWP 12:31
PROVIDERS: ATTEND Surgery
DX: N60.32 Fibrosclerosis of left breast (principal); N61.0 Mastitis without abscess
CPT/HCPCS: 88305; 77065; 19083; A4648

== ENCOUNTER → 2021-11-04 | Outpatient (CLI) | payer MEDICARE, OTHER ==
[2021-11-04 10:00] VITALS: BP 138/85; PULSE 91; RESP 16; TEMP 98.1
--- NOTE | 2021-11-04 10:13 | P.PN ---
Subjective Progress Note Date: 11/04/21 Principal diagnosis: left breast biopsy fat necrosis Lianne is a 50 year old mentally challenged female status post core biopsy of the left breast on 10-25-21. Pathology revealed fat necrosis, this was benign specific. He was seen in conjunction with Noemy her caregiver. Tolerated the procedure without difficulty. Objective - Vital Signs Vital signs: Vital Signs Temp 98.1 F 11/04/21 09:56 Pulse 91 11/04/21 09:56 Resp 16 11/04/21 09:56 BP 138/85 11/04/21 09:56 Pulse Ox 100 11/04/21 09:56 FiO2 Intake & Output 11/03/21 11/04/21 11/04/21 18:59 06:59 18:59 Weight 65.771 kg - Constitutional General appearance: Present: cooperative - EENT Eyes: Present: EOMI ENT: Present: hearing grossly normal - Neck Neck: Present: normal ROM - Respiratory Respiratory: bilateral: CTA - Cardiovascular Heart sounds: normal: S1, S2 - Integumentary Integumentary Comment(s): Biopsy site left breast clean and dry no evidence of hematoma or infection Assessment and Plan Assessment: Impression: Patient status post ultrasound core biopsy left breast benign concordant this was done on 75 Mentally challenged Prediabetic Diverticulitis Schizoaffective disorder and mild intellectual disability Fibrocystic breast changes Plan: Ultrasound of the left breast in 6 months with physician exam at that time CC: Dr. Hernandez
== END ==
LOC: WWCWWP 09:38
PROVIDERS: ATTEND Surgery
DX: D24.2 Benign neoplasm of left breast (principal); N60.19 Diffuse cystic mastopathy of unspecified breast; R73.03 Prediabetes; K57.92 Diverticulitis of intestine, part unspecified, without perforation or abscess without bleeding; F25.9 Schizoaffective disorder, unspecified; F70 Mild intellectual disabilities

== ENCOUNTER → 2022-04-10 | Outpatient (CLI) | payer MEDICARE, OTHER ==
--- NOTE | 2022-04-11 07:23 | MM ---
Reason for Exam: Screening (asymptomatic). Last screening mammogram was performed 12 month(s) ago. Patient History: Menarche at age 10. Patient has no children. Hormonal Contraceptives for 1 year from age 36 until age 37. 10/25/2021, Benign US biopsy breast VAD LT on the left side. 05/03/2020, Benign Core Biopsy on the left side. 05/03/2020, Benign Core Biopsy on the left side. 04/26/2020, Benign Core Biopsy on the left side. 04/26/2020, Benign Core Biopsy on the left side. Last menstrual period: 03/13/2022 Risk Values: Deb 5 year model risk: 1.8%. NCI Lifetime model risk: 13.8%. Prior Study Comparison: 11/02/2020 Left Diagnostic Mammogram, [facility]. 04/12/2021 Bilateral Diagnostic Mammogram, [facility]. 10/25/2021 Left MG diagnostic mammo LT wo CAD., [facility]. Tissue Density: The breast tissue is heterogeneously dense. This may lower the sensitivity of mammography. Findings: Analyzed By CAD. There is no suspicious group of microcalcifications or new suspicious mass in either breast. Benign calcifications within both breasts. There are 4 mammotome biopsy clips within the left breast. Interval benign calcification of the biopsied lesion at 2:00 in the left breast. Stable chronic nodularity within the left breast. Overall Assessment: Benign, BI-RAD 2 Management: Screening Mammogram of both breasts in 1 year. A clinical breast exam by your physician is recommended on an annual basis and results should be correlated with mammographic findings. Electronically signed and approved by: Colt Granda D.O.
== END | disposition home or self-care (01) ==
LOC: RADMAMWWP 12:22
PROVIDERS: ATTEND Surgery
DX: Z12.31 Encounter for screening mammogram for malignant neoplasm of breast (principal)
CPT/HCPCS: 77063; 77067

== ENCOUNTER → 2023-06-05 | Outpatient (CLI) | payer MEDICARE, OTHER ==
--- NOTE | 2023-06-06 21:47 | MM ---
Reason for Exam: Screening (asymptomatic). Last mammogram was performed 1 year(s) and 2 month(s) ago. Patient History: Menarche at age 10. Patient has no children. Hormonal Contraceptives for 1 year from age 36 until age 37. 10/25/2021, Benign US biopsy breast VAD LT on the left side. 05/03/2020, Benign Core Biopsy on the left side. 05/03/2020, Benign Core Biopsy on the left side. 04/26/2020, Benign Core Biopsy on the left side. 04/26/2020, Benign Core Biopsy on the left side. Risk Values: Deb 5 year model risk: 1.4%. NCI Lifetime model risk: 8.6%. Prior Study Comparison: 04/12/2021 Bilateral Diagnostic Mammogram, [facility]. 10/25/2021 Left MG diagnostic mammo LT wo CAD., [facility]. 04/10/2022 Bilateral MG 3D screening mammo w/cad, [facility]. Tissue Density: The breast tissue is extremely dense which could obscure a lesion on mammography. Findings: Analyzed By CAD. Fat necrosis calcifications redemonstrated on the left along with 4 microclip prior biopsy. Underlying chronic bilateral nodularity better noted on 3-D images. There is no suspicious group of microcalcifications or new suspicious mass in either breast. Overall Assessment: Benign, BI-RAD 2 Management: Screening Mammogram of both breasts in 1 year. Given extremely dense breast tissue, consider supplementary screening with breast ultrasound. Patient should continue monthly self-breast exams. A clinical breast exam by your physician is recommended on an annual basis. This exam should not preclude additional follow-up of suspicious palpable abnormalities. Note on Deb scores and lifetime risk: 1. A Deb score greater than 3% is considered moderate risk. If this is the case, consider specialist referral to assess eligibility for a risk reducing agent. 2. If overall lifetime risk for the development of breast cancer is 20% or higher, the patient may qualify for future screening with alternating mammogram and breast MRI. Electronically signed and approved by: Brandon Nieto M.D. Radiologist
== END | disposition home or self-care (01) ==
LOC: RADMAMWWP 12:43
PROVIDERS: ATTEND Surgery
DX: Z12.31 Encounter for screening mammogram for malignant neoplasm of breast (principal)
CPT/HCPCS: 77063; 77067

== ENCOUNTER → 2023-06-08 | Outpatient (CLI) | payer MEDICARE, OTHER ==
--- NOTE | 2023-06-08 13:41 | P.PN ---
Subjective Progress Note Date: 06/08/23 Principal diagnosis: fibrocystic breast disease Fibrocystic breast changes bilateral fibrocystic breast changes Lianne is a 50-year-old mentally challenged -[place] female who underwent a bilateral screening mammogram on 256515 and ultrasound on 471098. She was seen in consultation for Dr. Vaughn regarding the abnormalities noted on the ultrasound. 4 areas were recommended for biopsy on the ultrasound and these biopsies were performed on 1421 and 51270. The area in the left breast at 2:00 revealed fibrocystic changes Area left breast at 7:00 fibrocystic changes Left breast at 3:00 fibrocystic changes Area left breast at 4:00 fibroadenomatoid change with mild. Ductal chronic inflammation and focal sclerosing adenosis All areas were felt to be concordant and negative for malignancy. Approximately 8-9 years ago she did have a biopsy done in one of the breast which was benign. She had a bilateral mammogram on 06-05-23 which was BIRAD 2. This was personally reviewed. The patient is not complaining of any lumps masses or nodules in her breast, she is mentally challenged and does not do self-examinations. No nipple discharge. Noemy Beltran caregiver seen with the patient. caffeine: tea in evening nicotine: none michael-bromine: occasional Family History: unknown Hormonal History: menarche: ? start G0 menopause: periods regular BCP: none hormones: none Past Surgical History: none Medical History: diverticulitis mentally challenged pre-diabetic Schizoaffective disorder and mild intellectual disability Social History: nicotine: none alcohol: none drugs: none - Constitutional Constitutional: Denies chills, Denies fever - EENT Eyes: denies blurred vision, denies pain Ears: deny: decreased hearing, tinnitus Ears, nose, mouth and throat: Denies headache, Denies sore throat - Breasts Breasts: bilateral: as per HPI - Cardiovascular Cardiovascular: Denies chest pain, Denies shortness of breath - Respiratory Respiratory: Denies cough - Gastrointestinal Gastrointestinal: Denies abdominal pain, Denies diarrhea, Denies nausea, Denies vomiting - Genitourinary (Female) Comment: UTI in past Genitourinary: Denies dysuria, Denies hematuria - Menstruation Menstruation: Reports period normal - Musculoskeletal Musculoskeletal: Denies myalgias - Integumentary Integumentary: Denies pruritus, Denies rash - Neurological Neurological: Denies numbness, Denies weakness - Psychiatric Comment: Schizoaffective disorder Mild intellectual disability - Endocrine Endocrine: Denies fatigue, Denies weight change - Hematologic/Lymphatic Comment: none - Allergic/Immunologic Allergic/Immunologic: Reports as per HPI Objective - Constitutional General appearance: Present: cooperative - EENT ENT: Present: hearing grossly normal - Neck Neck: Present: normal ROM - Respiratory Respiratory: bilateral: CTA - Cardiovascular Heart sounds: normal: S1, S2 - Integumentary Integumentary: Present: normal turgor - Musculoskeletal Musculoskeletal: Present: gait normal - Psychiatric Psychiatric: Present: A&O x's 3, appropriate affect, intact judgment & insight - Additional findings Additional findings: Breast Examination: BRA: sports medium inspection: bilateral grade 2/3 ptosis, right breast larger than left breast Palpation: Right breast: Multiple positional exam fibrocystic changes no dominant masses or nodules of concern Right axilla: No adenopathy of concern Left breast: No dominant masses or nodules of concern Left axilla: No adenopathy of concern Assessment and Plan Assessment: Impression: diverticulitis mentally challenged pre-diabetic Schizoaffective disorder and mild intellectual disability Other cystic breast changes Ultrasound of the left breast revealing a lesion of concern for which biopsy is recommended Plan: bilateral mammogram 06-05-23 BIRAD 2 follow up in one year CC: Dr. Vaughn
[2023-06-08 14:04] VITALS: BP 128/73; PULSE 115; RESP 15; TEMP 96.9
== END ==
LOC: WWCWWP 12:19
PROVIDERS: ATTEND Surgery
DX: N60.11 Diffuse cystic mastopathy of right breast (principal); N60.12 Diffuse cystic mastopathy of left breast; N60.22 Fibroadenosis of left breast; K57.92 Diverticulitis of intestine, part unspecified, without perforation or abscess without bleeding; R73.03 Prediabetes; F70 Mild intellectual disabilities; F25.9 Schizoaffective disorder, unspecified

== ENCOUNTER → 2024-07-04 | Outpatient (CLI) | payer MEDICARE, OTHER ==
--- NOTE | 2024-07-04 13:16 | MM ---
Reason for Exam: Screening (asymptomatic). Last mammogram was performed 1 year(s) and 1 month(s) ago. Patient History: Menarche at age 10. Patient has no children. Hormonal Contraceptives for 1 year from age 36 until age 37. 10/25/2021, Benign US biopsy breast VAD LT on the left side. 05/03/2020, Benign Core Biopsy on the left side. 05/03/2020, Benign Core Biopsy on the left side. 04/26/2020, Benign Core Biopsy on the left side. 04/26/2020, Benign Core Biopsy on the left side. Risk Values: Deb 5 year model risk: 1.5%. NCI Lifetime model risk: 8.4%. Prior Study Comparison: 10/25/2021 Left MG diagnostic mammo LT wo CAD., [facility]. 04/10/2022 Bilateral MG 3D screening mammo w/cad, [facility]. 06/05/2023 Bilateral MG 3D screening mammo w/cad, [facility]. Tissue Density: The breasts are extremely dense, which lowers the sensitivity of mammography. Findings: Analyzed By CAD. There is no suspicious group of microcalcifications or new suspicious mass in either breast. Scattered benign desiccation is noted. Overall Assessment: Benign, BI-RAD 2 Management: Screening Mammogram of both breasts in 1 year. . Patient should continue monthly self-breast exams. A clinical breast exam by your physician is recommended on an annual basis. This exam should not preclude additional follow-up of suspicious palpable abnormalities. Note on Deb scores and lifetime risk: 1. A Deb score greater than 3% is considered moderate risk. If this is the case, consider specialist referral to assess eligibility for a risk reducing agent. 2. If overall lifetime risk for the development of breast cancer is 20% or higher, the patient may qualify for future screening with alternating mammogram and breast MRI. [facility], , 07/04/2024 1:12 PM. Electronically signed and approved by: George Vargas M.D. Radiologis
== END | disposition home or self-care (01) ==
LOC: RADMAMWWP 12:37
PROVIDERS: ATTEND Surgery
DX: Z12.31 Encounter for screening mammogram for malignant neoplasm of breast (principal); R92.343 Mammographic extreme density, bilateral breasts
CPT/HCPCS: 77063; 77067

== ENCOUNTER → 2024-08-22 | Outpatient (CLI) | payer MEDICARE, OTHER | LOC: WWCWWP 10:19 | PROVIDERS: ATTEND Surgery | DX: Z53.9 Procedure and treatment not carried out, unspecified reason (principal) ==

== ENCOUNTER → 2024-09-02 | Outpatient (CLI) | payer MEDICARE, OTHER ==
[2024-09-02 08:03] VITALS: BP 92/70; PULSE 101; RESP 17; TEMP 97.4
--- NOTE | 2024-09-02 11:45 | P.PN ---
Subjective Progress Note Date: 09/02/24 Principal diagnosis: fibrocystic breast changes 09-02-24 Principal diagnosis: fibrocystic breast disease Lianne is a 53-year-old mentally challenged -[place] female who underwent a bilateral screening mammogram on and ultrasound on 1719. She was seen in consultation for Dr. Vaughn regarding the abnormalities noted on the ultrasound. 4 areas were recommended for biopsy on the ultrasound and these biopsies were performed on 1421 and [address]10. The area in the left breast at 2:00 revealed fibrocystic changes Area left breast at 7:00 fibrocystic changes Left breast at 3:00 fibrocystic changes Area left breast at 4:00 fibroadenomatoid change with mild. Ductal chronic inflammation and focal sclerosing adenosis All areas were felt to be concordant and negative for malignancy. In the reomte past she did have a biopsy done in one of the breast which was benign. She had a bilateral mammogram on 08-22-24 which was BIRAD 2. This was personally interpreted. The patient is not complaining of any lumps masses or nodules in her breast, she is mentally challenged and does not do self-examinations. No nipple discharge. Noemy Beltran caregiver seen with the patient. caffeine: tea in evening nicotine: none michael-bromine: occasional Family History: unknown Hormonal History: menarche: ? start G0 menopause: periods regular BCP: none hormones: none Past Surgical History: none Medical History: diverticulitis mentally challenged pre-diabetic Schizoaffective disorder and mild intellectual disability Social History: nicotine: none alcohol: none drugs: none - Constitutional Constitutional: Denies chills, Denies fever - EENT Eyes: denies blurred vision, denies pain Ears: deny: decreased hearing, tinnitus Ears, nose, mouth and throat: Denies headache, Denies sore throat - Breasts Breasts: bilateral: as per HPI - Cardiovascular Cardiovascular: Denies chest pain, Denies shortness of breath - Respiratory Respiratory: Denies cough - Gastrointestinal Gastrointestinal: Denies abdominal pain, Denies diarrhea, Denies nausea, Denies vomiting - Genitourinary (Female) Comment: UTI in past Genitourinary: Denies dysuria, Denies hematuria - Menstruation Menstruation: Reports period normal - Musculoskeletal Musculoskeletal: Denies myalgias - Integumentary Integumentary: Denies pruritus, Denies rash - Neurological Neurological: Denies numbness, Denies weakness - Psychiatric Comment: Schizoaffective disorder Mild intellectual disability - Endocrine Endocrine: Denies fatigue, Denies weight change - Hematologic/Lymphatic Comment: none - Allergic/Immunologic Allergic/Immunologic: Reports as per HPI Objective - Vital Signs Vital signs: Vital Signs Temp 97.4 F L 09/02/24 08:01 Pulse 101 H 09/02/24 08:01 Resp 17 09/02/24 08:01 BP 92/70 09/02/24 08:01 Pulse Ox 100 09/02/24 08:01 FiO2 Intake & Output 09/01/24 09/02/24 09/02/24 18:59 06:59 18:59 Weight 52.617 kg - Constitutional General appearance: Present: cooperative - EENT Eyes: Present: EOMI ENT: Present: hearing grossly normal - Neck Neck: Present: normal ROM - Respiratory Respiratory: bilateral: CTA - Cardiovascular Rhythm: regular Heart sounds: normal: S1, S2 - Integumentary Integumentary: Present: normal turgor - Musculoskeletal Musculoskeletal: Present: gait normal - Psychiatric Psychiatric: Present: A&O x's 3, appropriate affect, intact judgment & insight - Additional findings Additional findings: Breast Examination: BRA: sports medium inspection: bilateral grade 2/3 ptosis, right breast larger than left breast Palpation: Right breast: Multiple positional exam fibrocystic changes no dominant masses or nodules of concern Right axilla: No adenopathy of concern Left breast: No dominant masses or nodules of concern Left axilla: No adenopathy of concern Assessment and Plan Assessment: Impression: diverticulitis mentally challenged/ 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 Vaughn Additional CC's: David Hernandez
== END ==
LOC: WWCWWP 07:34
PROVIDERS: ATTEND Surgery
DX: Z12.31 Encounter for screening mammogram for malignant neoplasm of breast (principal); K57.92 Diverticulitis of intestine, part unspecified, without perforation or abscess without bleeding; R73.03 Prediabetes; F70 Mild intellectual disabilities; F25.9 Schizoaffective disorder, unspecified; N60.12 Diffuse cystic mastopathy of left breast; N60.11 Diffuse cystic mastopathy of right breast

== ENCOUNTER → 2024-09-30 | Outpatient (CLI) | payer MEDICARE, OTHER ==
--- NOTE | 2024-09-30 12:24 | US ---
EXAMINATION TYPE: US kidneys/renal and bladder DATE OF EXAM: 09/30/2024 COMPARISON: CT(01/30/2019) CLINICAL INDICATION: Female, 53 years old with history of N18.30,R94.4 ABNORMAL RESULTS OF KIDNEY FUN CTION S; pt is special needs had a hard time sitting still/moving, pt could not hold her breath TECHNIQUE: Grayscale imaging of the bilateral kidneys and urinary bladder: FINDINGS: EXAM MEASUREMENTS: Right Kidney: 10.2x4.5x6.1cm Left Kidney: 9.2x4.5x5.5cm slightly limited exam due to overlying bowel & pt unable to hold still/hold breath Right Kidney: Anechoic area seen: 6.1x3.9x5.9cm Left Kidney: No hydronephrosis or masses seen Bladder: wnl Bilateral Jets seen: Yes No hydronephrosis or shadowing renal calculus. No cortical thinning. Cortical medullary differentiati on is maintained bilaterally. Right renal simple cysts measuring up to 6.1 cm. Bilateral ureteral jet s identified. There is some layering debris versus artifact within the urinary bladder. IMPRESSION: 1. No hydronephrosis or nephrolithiasis. 2. Simple right renal cyst as seen on prior CT. No follow-up recommended. 3. Nonspecific layering debris versus artifact within the urinary bladder. Correlate with urinalysis. [facility], , 09/30/2024 12:22 PM
== END | disposition home or self-care (01) ==
LOC: RADUSWWP 11:32
PROVIDERS: ATTEND Internal Medicine Pulmonary Disease
DX: N28.1 Cyst of kidney, acquired (principal); R94.4 Abnormal results of kidney function studies; N18.30 Chronic kidney disease, stage 3 unspecified
CPT/HCPCS: 76770

== ENCOUNTER 2024-11-12 07:02 | Outpatient (CLI) | payer MEDICARE, OTHER ==
[2024-11-11 13:48] VITALS: BMI 18.7
[~2024-11-12 07:02] MED LIST: LACTATED RINGERS 1,000 ML IV SCH
[2024-11-12 07:42] VITALS: TEMP 97
[2024-11-12] MEDS: IV FLUID CONTINUATION 1,000 ML IV ONE ×3 (07:58→10:29)
[2024-11-12] MEDS: SODIUM CHLORIDE 0.9% 1,000 ML IV ONE (07:58)
[2024-11-12] MEDS: ALPRAZolam 0.25 MG TAB PO STA (07:59)
[2024-11-12] MEDS: SODIUM CHLORIDE 0.9% 500 ML 500 ML IV SCH (08:14)
[2024-11-12] MEDS ORDERED: MIDAZOLAM 2 MG/2 ML VIAL ONE (08:45)
[2024-11-12] MEDS ORDERED: LIDOCAINE 1% INJ 10MG/ML (20 ML MDV) ONE (08:45)
[2024-11-12] MEDS ORDERED: fentaNYL (PF) 50 MCG/ML 2 ML AMP ONE (08:45)
[2024-11-12] MEDS ORDERED: PROPOFOL 10 MG/ML 20 ML VIAL IV ONE (08:45)
[2024-11-12 09:16] VITALS: RESP 16
--- NOTE | 2024-11-12 09:23 | CT ---
EXAMINATION TYPE: CT ChestAbdPelvis wo con DATE OF EXAM: 11/12/2024 9:04 AM COMPARISON: Abdomen and pelvis 01/30/2019 CLINICAL INDICATION: Female, 53 years old with history of UNEXPLAINED WEIGHT LOSS; [facility] Technique: CT of the chest, abdomen, and pelvis without IV contrast. Two-dimensional coronal and sagi ttal reconstructions were obtained. CT DLP: 366.10 mGycm, Automated exposure control for dose reduction was used. Findings: CHEST: The lack of IV contrast limits assessment of the mediastinum and hilar structures as well as lymph no efrain. The heart is upper limits of normal in size without pericardial effusion. Aorta normal caliber with conventional branching anatomy. Small foci of soft tissue air along the anterior left thoracic inlet and anterior left shoulder. Etio logy unclear. Asymmetric soft tissue prominence along the right anterior base of the neck likely due to patient's h ead being turned slightly toward the right. Allowing for noncontrast exam, no obvious thoracic adenopathy is seen. Lungs show mild emphysematous change and hazy dependent atelectasis. No consolidation or pleural effu annabelle. ABDOMEN: Lack of IV contrast limits assessment of the solid abdominal viscera, lymph nodes, and vascular struc tures. Noncontrast appearance of the liver, gallbladder, adrenal glands, left kidney, spleen show no gross a bnormality. Again, assessment is very limited. Enlarging 5.8 cm cyst lower pole right kidney versus 4.6 cm back in 2019. No dilated small bowel, free fluid, or free air. Assessment for abdominal lymphadenopathy is acutely limited especially given the paucity of intra-abdominal fat. The appendix is seen. There is moderate overall stool burden. PELVIS: Bladder partially distended. Uterus shows exophytic lobulation measuring up to 3.7 cm extending into the left posterior cul-de-sac and previously measuring 2.8 cm. Otherwise, unable to discretely deline ate the uterine contour or identify either ovary due to crowded nonopacified bowel loops. Punctate pe lvic phleboliths. No obvious abnormal fluid collection in the pelvis. BONES: Advanced hypertrophic facet arthropathy throughout the lumbar spine. IMPRESSION: 1. Lack of contrast and paucity of intra-abdominal fat markedly limits assessment. 2. Foci of soft tissue air at the anterior left thoracic inlet and anterior left shoulder. The etiolo gy is unclear. Correlate for any attempted procedure here or injury. 3. Asymmetric soft tissue prominence along the anterior right base of the neck likely due to head pos itioning. Correlate for any physical exam/palpable abnormality here. 4. Slowly enlarging 5.8 cm right renal cyst, previously measuring 4.6 cm in 2019. 5. Fibroid uterus. A pedunculated exophytic fibroid projecting posteriorly on the left measures 3.7 c m versus 2.8 cm, previously. 6. COPD with mild emphysema. Moderate stool burden. [facility], , 11/12/2024 9:21 AM
[2024-11-12 10:26] VITALS: BP 128/87; PULSE 71
== END 2024-11-12 10:45 | disposition home or self-care (01) ==
LOC: RADCTMAIN 07:02
PROVIDERS: ATTEND Internal Medicine Pulmonary Disease
DX: N28.1 Cyst of kidney, acquired (principal); J43.9 Emphysema, unspecified; D25.9 Leiomyoma of uterus, unspecified
CPT/HCPCS: 84703; 71250; 74176; J2250; J2003; J3010; J2704